=== PATIENT | male | born 2000 | race Caucasian/White ===

== ENCOUNTER → 2024-12-01 08:51 | Outpatient (BNVA) | payer OTHER, SELFPAY | PROVIDERS: PCP Nurse Practitioner Family; Visit Provider Nurse Practitioner Family | DX: S69.90XA Unspecified injury of unspecified wrist, hand and finger(s), initial encounter (principal); X58.XXXA Exposure to other specified factors, initial encounter; M25.511 Pain in right shoulder | CPT/HCPCS: 73030; 73130 ==